=== PATIENT | male | born 2000 | race Caucasian/White ===

== ENCOUNTER 2025-07-16 13:19 | Inpatient (IN) | payer MEDICAID ==
[~2025-07-16] VITALS: Ht 167.6 cm; Wt 104.5 kg
[2025-07-16] MEDS ORDERED: GABA-1216 PO (13:32)
[2025-07-16 14:12] LABS: PLATELET COUNT (AUTO) 347 K/uL (150-450); RED BLOOD CELL COUNT(AUTO) 4.99 MIL/uL (4.50-5.90); RED CELL DISTRIBUTION WIDTH 19.2 % (11.5-14.5); WHITE BLOOD COUNT (AUTO) 8.5 K/uL (4.5-11.0)
[2025-07-16 14:17] LABS: RBC MORPHOLOGY COMMENT ABNORMAL RBC MORPH
[2025-07-16 14:27] LABS: TROPONIN I-HIGH SENSITIVITY 4 ng/L (<76)
[2025-07-16] MEDS: LORazepam 2 MG/ML VIAL IVP ONE ×2 (14:45→16:00)
[2025-07-16 15:21] LABS: CALCIUM, TOTAL 8.4 mg/dL (8.8-10.5); CREATININE 0.66 mg/dL (0.60-1.30); GLOMERULAR FILTR. RATE CALC > 60 mL/min (>60); GLUCOSE,RANDOM 108 mg/dL (70-110); SODIUM SERUM 137 mmol/L (136-145); UREA NITROGEN, BLOOD 16 mg/dL (7-18)
[2025-07-16] MEDS ORDERED: ZOLPIDEM TARTRATE 5 MG TABLET PO PRN (15:45)
[2025-07-16] MEDS ORDERED: MAGNESIUM HYDROXIDE SUSPENSION 30 ML UDCUP PO PRN (15:45)
[2025-07-16] MEDS ORDERED: ACETAMINOPHEN 325 MG TABLET PO PRN (15:45)
[2025-07-16] MEDS ORDERED: BISACODYL 10 MG RECTAL RECTAL SUPPOSITORY PR PRN (15:45)
[2025-07-16] MEDS ORDERED: ONDANSETRON HCL 4 MG/2 ML VIAL IVP PRN (15:45)
[2025-07-16] MEDS ORDERED: MIDAZOLAM HCL 5 MG/ML VIAL ONE (16:20)
[2025-07-16] MEDS: MIDAZOLAM HCL 5 MG/ML VIAL IVP ONE (16:30)
[2025-07-16] MEDS ORDERED: MIDAZOLAM HCL 5 MG/ML VIAL IVP ONE (16:30)
[2025-07-16] MEDS: MIDAZOLAM HCL 2 MG/2 ML VIAL IVP ONE (18:56)
[2025-07-16] MEDS: HEPARIN SODIUM,PORCINE 5,000 UNITS/ML VIAL SQ SCH (19:00)
[2025-07-16] MEDS: SODIUM CHLORIDE 0.9% 1,000 ML IV ONE (19:53)
[2025-07-16 20:26] LABS: TROPONIN I-HIGH SENSITIVITY Less Than 4 ng/L (<76)
[2025-07-16] MEDS: DOCUSATE SODIUM 100 MG CAPSULE PO SCH (20:32)
[2025-07-16 22:00] VITALS: BP 117/86; PULSE 84; RESP 20; TEMP 98; O2SAT 95
[2025-07-16 23:41] VITALS: BP 126/79; PULSE 81; RESP 19; O2SAT 95
[2025-07-17] MEDS: HYDROCODONE/ACETAMINOPHEN 5-325 MG TABLET PO PRN (00:09)
[2025-07-17 01:12] LABS: APPEARANCE,URINE CLEAR (CLEAR); GLUCOSE, URINE (UA) 300-500 mg/dL (NEGATIVE); LEUKOCYTE ESTERASE ,URINE NEGATIVE (NEGATIVE); NITRATE,URINE NEGATIVE (NEGATIVE); OCCULT BLOOD,URINE NEGATIVE (NEGATIVE); PH,URINE DRUG SCREEN 5.5 (5.0-8.0); SPECIFIC GRAVITIY, URINE 1.033 (1.003-1.030)
[2025-07-17 01:18] LABS: ALCOHOL, URINE DRUG SCREEN NEGATIVE (NEGATIVE); AMPHET/METH SCREEN,URINE NEGATIVE (NEGATIVE); BARBITURATE SCREEN, URINE NEGATIVE (NEGATIVE); CANNABINOID SCREEN,URINE NEGATIVE (NEGATIVE); COCAINE SCREEN,URINE NEGATIVE (NEGATIVE); METHADONE SCREEN, URINE NEGATIVE (NEGATIVE)
[2025-07-17 01:19] LABS: SQUAMOUS EPITHELIAL CELL,UR Few /LPF (None Seen)
[2025-07-17] MEDS ORDERED: OXYC10TA48 PO (01:44)
[2025-07-17] MEDS ORDERED: DULO60CA73 PO (01:45)
[2025-07-17 05:25] VITALS: BP 143/92; PULSE 95; RESP 19; TEMP 97.8; O2SAT 100
[2025-07-17] MEDS: MORPHINE SULFATE 4 MG/ML SYRINGE IVP PRN (06:33)
[2025-07-17] MEDS ORDERED: GABA-1216 PO (08:05)
[2025-07-17] MEDS: PANTOPRAZOLE SODIUM 40 MG DR TABLET PO SCH (08:17)
[2025-07-17 08:19] VITALS: BP 140/77; PULSE 93; RESP 18; TEMP 97.9; O2SAT 96
[2025-07-17] MEDS: GABAPENTIN 100 MG CAPSULE PO SCH (08:58)
[2025-07-17] MEDS: DULoxetine HCL 60 MG CAPSULE PO SCH (08:58)
[2025-07-17 12:19] VITALS: BP 142/90; PULSE 112; RESP 19; TEMP 98.2; O2SAT 97
[2025-07-17 15:35] VITALS: BP 146/78; PULSE 120; RESP 19; TEMP 98.3; O2SAT 97
[2025-07-17 20:41] VITALS: BP 128/72; PULSE 105; RESP 20; TEMP 98.4; O2SAT 97
[2025-07-17 23:28] VITALS: BP 150/85; PULSE 94; RESP 18; TEMP 98.6; O2SAT 98
[2025-07-18 03:32] VITALS: BP 150/94; PULSE 91; RESP 18; TEMP 98.6; O2SAT 98
[2025-07-18 08:00] VITALS: BP 133/87; PULSE 87; RESP 19; TEMP 98.4; O2SAT 97
[2025-07-18 11:33] VITALS: BP 148/78; PULSE 111; RESP 18; TEMP 98.2; O2SAT 98
[2025-07-18 14:52] VITALS: BP 141/88; PULSE 110; RESP 16; TEMP 98.4; O2SAT 96
[2025-07-18 19:34] VITALS: BP 150/82; PULSE 102; RESP 18; TEMP 98.6; O2SAT 96
[2025-07-18 23:08] VITALS: BP 147/85; PULSE 84; RESP 17; TEMP 97.9; O2SAT 95
[2025-07-19 11:23] LABS: PLATELET COUNT (AUTO) 383 K/uL (150-450); RED BLOOD CELL COUNT(AUTO) 4.62 MIL/uL (4.50-5.90); RED CELL DISTRIBUTION WIDTH 19.3 % (11.5-14.5); WHITE BLOOD COUNT (AUTO) 17.8 K/uL (4.5-11.0)
[2025-07-19 11:25] LABS: RBC MORPHOLOGY COMMENT ABNORMAL RBC MORPH
[2025-07-19 11:39] LABS: TROPONIN I-HIGH SENSITIVITY Less Than 4 ng/L (<76)
[2025-07-19 11:41] LABS: CALCIUM, TOTAL 8.6 mg/dL (8.8-10.5); CREATININE 0.66 mg/dL (0.60-1.30); GLOMERULAR FILTR. RATE CALC > 60 mL/min (>60); GLUCOSE,RANDOM 208 mg/dL (70-110); SODIUM SERUM 136 mmol/L (136-145); UREA NITROGEN, BLOOD 12 mg/dL (7-18)
[2025-07-19 18:36] VITALS: BP 147/89; PULSE 94; RESP 18; TEMP 98.1; O2SAT 97
[2025-07-19 19:58] VITALS: BP 148/97; PULSE 75; RESP 18; TEMP 98.1; O2SAT 97
[2025-07-20 04:19] VITALS: BP 125/95; PULSE 74; RESP 18; TEMP 98.1; O2SAT 97
[2025-07-20 09:20] VITALS: BP 140/91; PULSE 81; RESP 20; TEMP 97.9; O2SAT 99
[2025-07-20 16:45] VITALS: BP 134/85; PULSE 88; RESP 20; TEMP 99.5; O2SAT 98
[2025-07-20 19:38] VITALS: BP 144/80; PULSE 89; RESP 18; TEMP 99.5; O2SAT 97
[2025-07-21 04:00] VITALS: BP 147/82; PULSE 86; RESP 18; TEMP 99; O2SAT 98
[2025-07-21 09:55] VITALS: BP 141/84; PULSE 75; RESP 18; TEMP 98.1; O2SAT 98
[2025-07-21 15:05] VITALS: BP 150/85; PULSE 110; RESP 18; TEMP 98.4; O2SAT 98
[2025-07-21 19:46] VITALS: BP 132/76; PULSE 95; RESP 18; TEMP 99; O2SAT 99
[2025-07-22 04:20] VITALS: BP 146/89; PULSE 77; RESP 18; TEMP 98.2; O2SAT 98
[2025-07-22 08:00] VITALS: BP 136/82; PULSE 82; RESP 18; TEMP 98.1; O2SAT 99
[2025-07-22] MEDS: LIDOCAINE 5% TRANSDERMAL PATCH TD SCH (09:20)
[2025-07-22] MEDS ORDERED: MethylPREDNISolone SOD SUCC 1,000 MG in SODIUM CHLORIDE 0.9% 50 ML IV ONE (09:30)
[2025-07-22 16:00] VITALS: BP 127/76; PULSE 85; RESP 17; TEMP 99; O2SAT 99
[2025-07-22 21:00] VITALS: BP 140/91; PULSE 109; RESP 18; TEMP 99.5; O2SAT 98
[2025-07-22] MEDS: -LIDODERM PATCH NOTE- MISC SCH (21:15)
[2025-07-23 16:01] VITALS: BP 141/86; PULSE 101; RESP 17; TEMP 98.1; O2SAT 98
[2025-07-23 19:30] VITALS: BP 131/75; PULSE 99; RESP 18; TEMP 99; O2SAT 99
[2025-07-23 21:04] VITALS: BP 136/76; PULSE 95; RESP 18; TEMP 99; O2SAT 98
[2025-07-24 04:46] VITALS: BP 121/70; PULSE 101; RESP 18; TEMP 98.6; O2SAT 98
[2025-07-24 07:34] VITALS: BP 122/71; PULSE 98; RESP 18; TEMP 98.1; O2SAT 100
[2025-07-24] MEDS ORDERED: ACET-2247 PO (07:46)
[2025-07-24] MEDS ORDERED: LIDO-57 TP (07:46)
[2025-07-24] MEDS ORDERED: DOCU-385 PO (07:47)
== END 2025-07-24 11:25 | disposition home or self-care (01) | DRG 43 ==
LOC: EMS 13:29 → EDH 15:35 → 5S 21:41 → 6S 07-19 02:23 → 4E 07-21 09:44
PROVIDERS: ADMIT Internal Medicine; ATTEND Internal Medicine
DX: G35.D Multiple sclerosis, unspecified (principal); E44.0 Moderate protein-calorie malnutrition; R65.10 Systemic inflammatory response syndrome (SIRS) of non-infectious origin without acute organ dysfunction; D64.9 Anemia, unspecified; E66.9 Obesity, unspecified; G82.20 Paraplegia, unspecified; Z59.01 Sheltered homelessness; D72.829 Elevated white blood cell count, unspecified; F40.240 Claustrophobia; T38.0X5A Adverse effect of glucocorticoids and synthetic analogues, initial encounter; I49.8 Other specified cardiac arrhythmias; Y92.89 Other specified places as the place of occurrence of the external cause; Z90.49 Acquired absence of other specified parts of digestive tract; Z91.199 Patient's noncompliance with other medical treatment and regimen due to unspecified reason; Z68.37 Body mass index [BMI] 37.0-37.9, adult; Z79.899 Other long term (current) drug therapy
CPT/HCPCS: 70553; 71045; 72156; 80048; 80307; 81001; 82948; 84484; 85025; 87040; 92526; 92610; 93005; 96361; 96374; 96375; 96376; 97162; 97166; 97530; 97535; 99291; G0378; J1644; J2060; J2250; J2270; J2919; J7030; J7050; 36415-L1; 36415-TC